=== PATIENT | female | born 1960 | race African-American/Black ===

== ENCOUNTER 2018-01-18 14:27 | Emergency (ER) | payer OTHER, MEDICAID ==
[~2018-01-18] VITALS: Ht 162.6 cm; Wt 76.2 kg
[~2018-01-18 14:27] MED LIST: ATENOLOL100 MG PO; BG MC; CLONIDINE HCL0.2 MG PO; GABAPENTIN100 M2 PO; GOOD SENSE ASPI81 M3 PO; LIPI10 PO; LOSARTAN POTASS1 TA6 PO; NAPROSYN375 MG PO; NAPROXEN375 MG PO; NEU300 PO; NIFEDIPINE ER60 MG PO; NITROSTAT0.4 MG SL; TRAMADOL HCL50 MG PO
[2018-01-18 14:30] VITALS: BP 170/76
== END 2018-01-18 17:58 | disposition home or self-care (01) ==
LOC: ED 14:27
DX: M25.512 Pain in left shoulder (principal); I10 Essential (primary) hypertension; G89.29 Other chronic pain; M25.569 Pain in unspecified knee; X50.0XXA Overexertion from strenuous movement or load, initial encounter; Y93.89 Activity, other specified; Y92.89 Other specified places as the place of occurrence of the external cause; Y99.8 Other external cause status
CPT/HCPCS: J1885

== ENCOUNTER 2020-02-11 18:01 | Emergency (ER) | payer OTHER ==
[~2020-02-11] VITALS: Ht 162.6 cm; Wt 117.9 kg
[2020-02-11 18:03] VITALS: Ht 162.6 cm; Wt 117.9 kg
[2020-02-11 19:37] LABS: CALCIUM 9.3 mg/dL (8.5-10.1); CARBON DIOXIDE 30.1 mmol/L (21-32); CHLORIDE SERUM 105 mmol/L (98-107); GFR1 > 60 mL/min; GLUCOSE SERUM 145 mg/dL (74-106); SODIUM SERUM 141 mmol/L (136-145)
[2020-02-11 19:44] LABS: BASOPHIL % 0.5 % (0-2); PLATELET COUNT 311 x10^3mcL (130-400); RED CELL DISTRIBUTION WIDTH 15.4 % (11.5-14.5)
[2020-02-11 22:48] VITALS: BP 163/75
== END 2020-02-11 22:48 | disposition home or self-care (01) ==
LOC: ED 18:01
PROVIDERS: Emergency Medicine
DX: M54.9 Dorsalgia, unspecified (principal); R10.9 Unspecified abdominal pain; G89.29 Other chronic pain; E66.9 Obesity, unspecified; R11.0 Nausea
CPT/HCPCS: J1885; J2270; J2405; J7030